=== PATIENT | female | born 1985 | race Caucasian/White ===

== ENCOUNTER 2016-08-09 21:51 | Emergency (ER) | payer OTHER ==
[2016-08-09 22:27] VITALS: BP 138/69; PULSE 85; RESP 16; TEMP 97.5; O2SAT 98
[2016-08-09] MEDS ORDERED: PHENAZOPYRIDINE HCL 200 MG TAB PO ONE (22:29)
--- NOTE | 2016-08-09 22:31 | UCPHY ---
H & P Time Seen by Provider: 08/09/16 22:27 Patient Type: New HPI/ROS: CHIEF COMPLAINT: dysuria HISTORY OF PRESENT ILLNESS: Patient is a 31-year-old female who presents with dysuria, frequency and hematuria that started earlier today. She also complains of mild bilateral low back pain. This is not radiate. She has no fevers or chills. No nausea or vomiting. REVIEW OF SYSTEMS: My complete review of systems is negative except as mentioned in the HPI. Past Medical/Surgical History: Includes diabetes type 1 Past surgical history: Foot surgery, x2 Social history: Patient does not smoke Smoking Status: Never smoked Physical Exam: Vitals noted GENERAL: Well-appearing, in no acute distress, alert. HEENT: Normal NECK: Normal RESPIRATORY: Clear to auscultation bilaterally, no rales, rhonchi or wheezing. CVS: Regular rate and rhythm, no rubs, murmurs, or gallops. ABDOMEN: Soft, nontender, nondistended, no organomegaly. Benign BACK: Normal to inspection, no CVA tenderness. SKIN: Normal color, no rash, warm, dry. No pallor. EXTREMITIES: Normal NEURO/PSYCH: [Alert and oriented normal mood and affect Constitutional: Initial Vital Signs Temperature (C) 36.4 C 08/09/16 22:22 Heart Rate 85 08/09/16 22:22 Respiratory Rate 16 08/09/16 22:22 Blood Pressure 138/69 H 08/09/16 22:22 O2 Sat (%) 98 08/09/16 22:22 O2 Delivery Mode Room Air Allergies/Adverse Reactions: No Known Allergies Allergy (Verified 08/09/16 22:21) Home Medications: Medication Instructions Recorded Cephalexin [Keflex (*)] 500 mg PO QID 7 Days 08/09/16 Insulin Pump, Patient Own 08/09/16 Phenazopyridine HCl [Pyridium] 100 mg PO TID 3 Days 08/09/16 Medical Decision Making ED Course/Re-evaluation: Urine was obtained. UA showed signs of infection. I discussed the results with the patient. I answered all her questions. Patient was given Keflex orally. Patient was also given Pyridium orally. She was given a prescription of Keflex and Pyridium. Warnings were given prior to leaving. She will return with worsening symptoms. Differential Diagnosis: My differential includes but is not limited to urinary tract infection, cystitis , pyelonephritis, bacteremia, sepsis, kidney stones, STD, , ectopic - Data Points Laboratory Results: 08/09/16 22:30 Urine Color YELLOW Urine Appearance CLOUDY Urine pH 7.5 (5.0-7.5) Ur Specific [place] 1.010 (1.002-1.030) Urine Protein 1+ H (NEGATIVE) Urine Ketones NEGATIVE (NEGATIVE) Urine Blood 3+ H (NEGATIVE) Urine Nitrate NEGATIVE (NEGATIVE) Urine Bilirubin NEGATIVE (NEGATIVE) Urine Urobilinogen 0.2 EU (0.2-1.0) Ur Leukocyte Esterase 2+ H (NEGATIVE) Urine RBC >182 H /hpf (0-3) Urine WBC 25-50 H /hpf (0-3) Ur Epithelial Cells TRACE /lpf (NONE-1+) Urine Bacteria 1+ H /hpf (NONE SEEN) Urine Mucus 1+ /lpf (NONE-1+) Urine Glucose NEGATIVE (NEGATIVE) Medications Given: Discontinued Medications Phenazopyridine HCl (Pyridium) 200 mg PO EDNOW ONE Stop: 08/09/16 22:30 Last Admin: 08/09/16 22:38 Dose: 200 mg Departure - Departure Disposition: Home, Routine, Self-Care Clinical Impression: Urinary tract infection Qualifiers: Urinary tract infection type: acute cystitis Hematuria presence: with hematuria Qualifier Code: (N30.01) Acute cystitis with hematuria Condition: Good Instructions: Urinary Tract Infection in Women (ED) Additional Instructions: Return with increasing pain, frequency, fever, back pain or any other concerns. Referrals: Jazmyne Lerma MD [Medical Doctor] - 5-7 days, call for appt. Prescriptions: Cephalexin [Keflex (*)] 500 mg PO QID 7 Days Phenazopyridine HCl [Pyridium] 100 mg PO TID 3 Days - PQRS PQRS Measurement: NA
[2016-08-09 22:37] LABS: COLOR YELLOW; LEUKOCYTE ESTERASE,URINE 2+ (NEGATIVE); NITRITE,URINE NEGATIVE (NEGATIVE); PH,URINE 7.5 (5.0-7.5)
[2016-08-09 22:44] LABS: BACTERIA 1+ /hpf (NONE SEEN); MUCUS 1+ /lpf (NONE-1+); RBC,URINE >182 /hpf (0-3); WBC,URINE 25-50 /hpf (0-3)
[2016-08-09] MEDS ORDERED: CEPHALEXIN 500MG PREPACK#4 BTL TAKEHOME ONE (22:56)
[2016-08-09] MEDS ORDERED: HYDROCOD/APAP 5/325 PREPACK#6 BTL TAKEHOME ONE (22:56)
== END 2016-08-09 23:00 | disposition home or self-care (01) ==
LOC: CED 21:51
DX: N39.0 Urinary tract infection, site not specified (principal)
CPT/HCPCS: 81003-PO; 81015-PO; 99203-PO; G0463-PO

== ENCOUNTER 2018-09-26 06:21 | Emergency (ER) | payer OTHER ==
[2018-09-26 06:39] VITALS: BP 138/85
[2018-09-26] MEDS ORDERED: ACETAMINOPHEN 500 MG TAB PO ONE (06:53)
[2018-09-26] MEDS ORDERED: IBUPROFEN 600 MG TAB PO ONE (06:53)
[2018-09-26] MEDS ORDERED: BICILLIN L-A 1200000 UNIT/2 ML SYRINGE IM ONE (06:56)
--- NOTE | 2018-09-26 07:00 | EDPHY ---
H & P Time Seen by Provider: 09/26/18 06:48 HPI/ROS: This patient presents with a 3 day history of sore throat of moderate to severe intensity, currently 7/10 achy in nature. She has associated odynophagia but is still tolerating p.o. Intake. She states the pain is worse at on the right side of her pharynx the left. She has no other associated symptoms except low- grade fevers at home. She has mild improvement from [id number] analgesics but has not taken any this morning. She notes no other exacerbating or alleviating factors. ROS: Constitutional: No high fevers or chills HEENT: No nasal congestion. No sinus pain. No ear pain. Pulmonary: No cough GI: No nausea vomiting Musculoskeletal: No myalgias or arthralgias. Integumentary: No skin rash 7 point review of symptoms is performed and otherwise negative with exception of pertinent positives and negatives listed in HPI and ROS Smoking Status: Never smoked Physical Exam: Physical Exam Vital signs are normal. General: No acute distress HEENT: Nose: Clear nares bilaterally. Ears: External canals and tympanic membranes are clear with no erythema or abnormal findings bilaterally. Oropharynx: Mild erythema with no exudates.. No dysphonia. No drooling or stridor. Eyes: Pupils equal and react to light. Extraocular motions are intact. Neck: Supple with no meningismus. No lymphadenopathy Lungs: Clear to auscultation bilaterally with no rales, rhonchi or wheeze. No respiratory distress. Cardiac: Regular rate and rhythm with no murmur gallop or rub Skin: No rash or pallor. Neuro: Alert with no focal deficits noted. Initial differential diagnosis: Viral pharyngitis, strep pharyngitis Constitutional: Initial Vital Signs Temperature (C) 36.9 C 09/26/18 06:37 Heart Rate 74 09/26/18 06:37 Respiratory Rate 14 09/26/18 06:37 Blood Pressure 138/85 H 09/26/18 06:37 O2 Sat (%) 96 09/26/18 06:37 O2 Delivery Mode Room Air Allergies/Adverse Reactions: No Known Allergies Allergy (Verified 09/26/18 06:36) Home Medications: Medication Instructions Recorded Insulin Pump, Patient Own 08/09/16 MDM/Departure - MDM Diagnostics: Point of care rapid strep is positive ED Course/Re-evaluation: 1.2 million units of Bicillin LA antibiotic. Patient preferred this over oral antibiotics. She also received ibuprofen Tylenol for pain - Depart Disposition: Home, Routine, Self-Care Clinical Impression: Strep pharyngitis Condition: Good Instructions: Strep Throat (ED) Additional Instructions: Diagnosis: Strep pharyngitis Plan: Ibuprofen Tylenol for pain if needed You received an IM dose of Bicillin -LA (a long-acting form of penicillin to treat your strep pharyngitis) Seek a medical practitioner in follow-up if your symptoms have not resolved over the course of the next 7-10 days.
== END 2018-09-26 07:10 | disposition home or self-care (01) ==
LOC: CED 06:21
DX: J02.0 Streptococcal pharyngitis (principal)
CPT/HCPCS: 670937QWER; 96372-ER; 99284-ER; J0561